=== PATIENT | female | born 1980 | race Caucasian/White ===

== ENCOUNTER 2024-07-30 07:43 | Outpatient (CLI) | payer BC | END 2024-07-30 07:44 | disposition home or self-care (01) | LOC: SCSRAD 07:43 | PROVIDERS: ATTEND Thoracic Surgery (Cardiothoracic Vascular Surgery) | DX: I70.1 Atherosclerosis of renal artery (principal); I72.2 Aneurysm of renal artery; K55.1 Chronic vascular disorders of intestine; R93.5 Abnormal findings on diagnostic imaging of other abdominal regions, including retroperitoneum | CPT/HCPCS: 71046 ==